=== PATIENT | female | born 1985 | race Caucasian/White ===

== ENCOUNTER 2025-02-06 15:28 | Outpatient (CLI) | payer BC, SELFPAY ==
[2025-02-09 05:25] LABS: HPV Source Cervix
[2025-02-12 10:50] LABS: Pap Test Digital Imaging Done
== END 2025-02-06 15:29 | disposition home or self-care (01) ==
PROVIDERS: Visit Provider Obstetrics & Gynecology
DX: Z00.00 Encounter for general adult medical examination without abnormal findings (principal); Z12.4 Encounter for screening for malignant neoplasm of cervix; N91.1 Secondary amenorrhea
CPT/HCPCS: 80053; 80061; 82670; 84146; 84443; 87624; 87625; 88141; 88142; 88175

== ENCOUNTER 2025-02-08 14:00 | Outpatient (CLI) | payer BC, SELFPAY | END 2025-02-08 14:01 | disposition home or self-care (01) | LOC: NFLDREF 14:01 | PROVIDERS: Visit Provider Obstetrics & Gynecology | DX: N91.1 Secondary amenorrhea (principal) | CPT/HCPCS: 83001 ==

== ENCOUNTER 2025-02-18 13:55 | Outpatient (CLI) | payer BC, SELFPAY ==
--- NOTE | 2025-02-18 14:00 | CRLHL7_ITS ---
For Patients: As a result of the Century Cures Act, medical imaging exams and procedure reports are released immediately into your electronic medical record. You may view this report before your referring provider. If you have questions, please contact your health care provider. INDICATION: Pelvic and perineal pain. COMPARISON: None. TECHNIQUE: Ultrasound pelvis transabdominal and transvaginal for better assessment or to better visualize the endometrium. Real time sonographic images with color Doppler and spectral analysis of the ovaries were obtained. FINDINGS: Sonographic images demonstrate a normal size and smooth outer contour of the uterus. The uterus is anteverted in position. The uterus measures 6.9 cm in length by 2.1 cm in AP dimension by 3.7 cm in transverse dimension. The myometrium has uniform echotexture. The endometrial lining measures 3 mm in composite thickness. The right ovary measures 2.8 x 1.7 x 2.9 cm. Arterial and venous waveforms detected. Unremarkable sonographic appearance. There is a 1.3 x 1.4 x 1.5 cm anechoic cystic focus adjacent to the right ovary. This likely represents a paraovarian cyst. The left ovary measures 2.8 x 1.7 x 2.1 cm. Arterial and venous waveforms detected. Unremarkable sonographic appearance. No free fluid in the pelvic cul-de-sac. IMPRESSION: 1. Normal sonographic appearance of the uterus. 2. No evidence of ovarian torsion. 3. Small simple appearing right paraovarian cyst. Dictated by Kaelyn Ma MD @ 02/19/2025 4:36:39 AM (Electronically Signed)
== END 2025-02-18 13:56 | disposition home or self-care (01) ==
LOC: US 13:57
PROVIDERS: Visit Provider Obstetrics & Gynecology
DX: R10.20 Pelvic and perineal pain unspecified side (principal); N83.291 Other ovarian cyst, right side
CPT/HCPCS: 76830; 76856; 93976

== ENCOUNTER 2025-03-12 14:14 | Outpatient (CLI) | payer BC, SELFPAY ==
--- NOTE | 2025-03-12 14:30 | CRLHL7_ITS ---
For Patients: As a result of the Cures Act, medical imaging exams and procedure reports are released immediately into your electronic medical record. You may view this report before your referring provider. If you have questions, please contact your health care provider. INDICATION: Hyperprolactinemia. COMPARISON: None available. TECHNIQUE: Multiplanar T1, T2, FLAIR and diffusion-weighted imaging.. Post gadolinium T1 weighted sequences. Additional pre and post gadolinium sequences of the sella. Gadolinium 10 cc IV. FINDINGS: Normal brain parenchymal morphology and signal intensity. No intracranial hemorrhage. No abnormal ventricular dilatation. Intracranial vascular flow voids are preserved. No mass effect. No midline shift. No restricted diffusion to suggest acute ischemia. No abnormal enhancement or enhancing lesions within the brain parenchyma. Dedicated sequences of the sella demonstrates normal morphology of the pituitary gland. Normal infundibulum midline. On post gamma imaging, there is a focal heterogeneous nodular area of relative hypo enhancement in the right aspect of the pituitary gland measuring approximately 4 x 3 mm (series 9, image 10). An underlying microadenoma cannot be excluded. Normal cavernous sinuses. No suprasellar mass. Bilateral orbits are unremarkable. Visualized paranasal sinuses and mastoid air cells are unremarkable. IMPRESSION: 1. No acute intracranial abnormality 2. Normal brain parenchymal morphology and signal intensity. 3. No abnormal enhancement or enhancing lesions 4. Dedicated sequences of the sella demonstrates normal morphology of the pituitary gland. Focal heterogeneous nodular area of relative hypoenhancement within the right aspect of the pituitary gland may represent a microadenoma. Dictated by Riley Ngo MD @ 03/13/2025 8:21:39 PM (Electronically Signed)
== END 2025-03-12 14:15 | disposition home or self-care (01) ==
LOC: MRI 14:15
PROVIDERS: PCP Obstetrics & Gynecology; Visit Provider Obstetrics & Gynecology
DX: E22.1 Hyperprolactinemia (principal); D35.2 Benign neoplasm of pituitary gland; R93.0 Abnormal findings on diagnostic imaging of skull and head, not elsewhere classified
CPT/HCPCS: 70553; A9575